=== PATIENT | male | born 1970 | race Asian ===

== ENCOUNTER 2023-09-27 04:42 | Emergency (ER) | payer SELFPAY ==
[~2023-09-27] VITALS: Ht 162.6 cm; Wt 77.0 kg
[2023-09-27 04:52] VITALS: BP 132/90; PULSE 93; RESP 18; TEMP 97.7
[2023-09-27] MEDS ORDERED: ACET-3385 PO (05:04)
[2023-09-27] MEDS ORDERED: CEPH-558 PO (05:04)
[2023-09-27] MEDS ORDERED: SULF-261 PO (05:04)
[2023-09-27] MEDS: CEPHALEXIN MONOHYDRATE 500 MG CAPSULE PO ONE (05:06)
[2023-09-27] MEDS: SULFAMETHOX/TRIMETH DS 800-160 MG/TABLET PO ONE (05:06)
[2023-09-27] MEDS: ACETAMINOPHEN 500 MG TABLET PO ONE (05:06)
== END 2023-09-27 05:11 | disposition home or self-care (01) ==
LOC: EMS 04:44
DX: L03.313 Cellulitis of chest wall (principal); F15.90 Other stimulant use, unspecified, uncomplicated
CPT/HCPCS: 99284; Z7502; Z7610